=== PATIENT | female | born 1950 | race Caucasian/White ===

== ENCOUNTER 2019-02-15 23:40 | Inpatient (IN) ==
[2019-02-16] MEDS ORDERED: ONDANSETRON 4 MG/2 ML VIAL ONE ×2 (01:11→09:26)
[2019-02-16] MEDS ORDERED: HYDROmorphone 2 MG/1 ML VIAL ONE (01:11)
[2019-02-16] MEDS ORDERED: HYDROmorphone 2 MG/1 ML VIAL IV STA (01:28)
[2019-02-16] MEDS ORDERED: ONDANSETRON 4 MG/2 ML VIAL IV STA (01:28)
[2019-02-16 02:19] LABS: Basophils # 0.1 10*3/uL (0.0-0.2); Basophils % 0.4 % (0.0-0.8); Eosinophils # 0.2 10*3/uL (0.0-0.87); Hematocrit 32.7 VOL% (35.7-47.0); Hemoglobin 10.1 GM/DL (12.0-16.0); Immature Granulocytes Absolute 0.17 #; Lymphocytes % 11.8 % (21.3-54.2); Mean Corpuscular HGB Conc 30.9 GM/DL (32-36); Mean Corpuscular Volume 99.1 FL (87-102); Mean Platelet Volume 10.6 FL (9.6-12.0); Monocytes % 4.5 % (1.7-12.7); Neutrophils % 81.3 % (38.7-73.9); Platelet Count 145 T/CUMM (130-400); Red Cell Distribution Width 16.1 % (9.3-17.3); White Blood Count 17.1 T/CUMM (4-12)
[2019-02-16 02:31] LABS: INR 0.9; Partial Thromboplastin Time 23.1 SECS (20.8-36.0)
[2019-02-16 02:38] LABS: Alanine Aminotransferase 13 U/L (13-56); Albumin 3.5 G/DL (3.4-5.0); Alkaline Phosphatase 97 U/L (45-117); Aspartate Amino Transferase 14 U/L (0-37); Bilirubin,Total < 0.39 MG/DL (0.2-1.0); Blood Urea Nitrogen 59 MG/DL (7-18); Calcium 8.8 MG/DL (8.5-10.1); Glucose 192 MG/DL (74-106); Osmolality,Calculated 304.1 MOS/KG (273-304); Total Protein 7.2 G/DL (6.4-8.3)
[2019-02-16] MEDS ORDERED: ONDANSETRON 4 MG/2 ML VIAL IV PRN (03:02)
[2019-02-16] MEDS ORDERED: GLUCAGON 1 MG VIAL IM PRN (03:09)
[2019-02-16] MEDS ORDERED: DEXTROSE 50% 25 GM/50 ML VIAL IV PRN (03:09)
[2019-02-16] MEDS: SODIUM CHLORIDE 0.9% 1,000 ML IV SCH ×2 (04:55→15:50)
[2019-02-16 06:19] LABS: Basophils # 0.1 10*3/uL (0.0-0.2); Basophils % 0.4 % (0.0-0.8); Eosinophils # 0.2 10*3/uL (0.0-0.87); Eosinophils % 0.9 % (0.00-10.9); Hematocrit 33.5 VOL% (35.7-47.0); Hemoglobin 10.2 GM/DL (12.0-16.0); Immature Granulocytes % 1.1 %; Immature Granulocytes Absolute 0.18 #; Lymphocytes # 2.5 10*3/uL (1.4-4.0); Lymphocytes % 15.2 % (21.3-54.2); Mean Corpuscular HGB Conc 30.4 GM/DL (32-36); Mean Platelet Volume 10.7 FL (9.6-12.0); Monocytes % 4.9 % (1.7-12.7); Neutrophils % 77.5 % (38.7-73.9); Platelet Count 159 T/CUMM (130-400); Red Blood Count 3.35 MC/CUMM (3.8-5.5); Red Cell Distribution Width 16.5 % (9.3-17.3); White Blood Count 16.2 T/CUMM (4-12)
[2019-02-16 06:37] LABS: Calcium 8.9 MG/DL (8.5-10.1); Osmolality,Calculated 301.1 MOS/KG (273-304)
[2019-02-16] MEDS ORDERED: DEXAMETHASONE 4 MG/1 ML VIAL ONE (06:51)
[2019-02-16] MEDS ORDERED: LIDOCAINE 1% 5 ML VIAL ONE (06:51)
[2019-02-16] MEDS ORDERED: ROPIVACAINE 0.5% 30 ML VIAL ONE (06:51)
[2019-02-16] MEDS ORDERED: CLINDAMYCIN INJ 900 MG in PREMIX 1 EACH IV ONE (07:06)
[2019-02-16] MEDS ORDERED: ENOXAPARIN 30 MG/0.3 ML SYRINGE SUBCUT SCH (08:00)
[2019-02-16] MEDS ORDERED: NEOMYCIN/POLYMYXIN/BACITRACIN OINT 28.4 GM TUBE TOP ONE (08:27)
[2019-02-16] MEDS: INSULIN REGULAR 100 UNIT/ML SUBCUT SCH ×5 (09:06→23:25)
[2019-02-16] MEDS ORDERED: MAGNESIUM HYDROXIDE SUSP 30 ML UDCUP PO PRN (09:15)
[2019-02-16] MEDS ORDERED: MIDAZOLAM 2 MG/2 ML VIAL ONE (09:26)
[2019-02-16] MEDS ORDERED: fentaNYL 100 MCG/2 ML VIAL ONE (09:26)
[2019-02-16] MEDS ORDERED: ACETAMINOPHEN 1,000 MG/100 ML VIAL IV ONE (09:26)
[2019-02-16] MEDS ORDERED: PROPOFOL 200 MG/20 ML VIAL IV ONE (09:26)
[2019-02-16] MEDS ORDERED: PHENYLEPHRINE 1 MG/10 ML SYRINGE IV ONE (09:26)
[2019-02-16 11:38] LABS: Risk Ratio 4.19; VLDL CHOLESTEROL 68.2 MG/DL
[2019-02-16] MEDS: HYDROmorphone 2 MG/1 ML VIAL IV PRN ×2 (14:15→23:24)
[2019-02-16] MEDS: CLINDAMYCIN INJ 900 MG in PREMIX 1 EACH IV SCH (15:50)
[2019-02-16] MEDS: FAMOTIDINE 20 MG TABLET PO SCH ×2 (16:19→19:00)
[2019-02-16] MEDS: CLOPIDOGREL 75 MG TABLET PO SCH ×2 (16:20→19:00)
[2019-02-16] MEDS: AMINO ACIDS/DEXT/LYTES 4.25-5% 2,000 ML IV SCH (16:37)
[2019-02-16] MEDS: hydrALAZINE 20 MG/1 ML VIAL IV PRN (16:57)
[2019-02-16] MEDS: ROSUVASTATIN 20 MG TABLET PO SCH (20:33)
[2019-02-16] MEDS: OMEGA 3 ACID ETHYL ESTERS 1 GM CAPSULE PO SCH (20:33)
[2019-02-16] MEDS ORDERED: INSULIN GLARGINE 100 UNIT/ML SUBCUT SCH (21:00)
[2019-02-17] MEDS: HYDROmorphone 2 MG/1 ML VIAL IV PRN ×3 (01:15→20:36)
[2019-02-17] MEDS: SODIUM CHLORIDE 0.9% 1,000 ML IV SCH ×2 (02:19→08:47)
[2019-02-17] MEDS: CLINDAMYCIN INJ 900 MG in PREMIX 1 EACH IV SCH (02:49)
[2019-02-17 05:44] LABS: Basophils % 0.2 % (0.0-0.8); Hematocrit 29.9 VOL% (35.7-47.0); Hemoglobin 9.3 GM/DL (12.0-16.0); Immature Granulocytes % 0.9 %; Immature Granulocytes Absolute 0.12 #; Lymphocytes # 1.3 10*3/uL (1.4-4.0); Lymphocytes % 10.1 % (21.3-54.2); Mean Corpuscular HGB Conc 31.1 GM/DL (32-36); Mean Platelet Volume 10.5 FL (9.6-12.0); Monocytes % 7.4 % (1.7-12.7); Neutrophils % 81.4 % (38.7-73.9); Platelet Count 134 T/CUMM (130-400); Red Blood Count 3.02 MC/CUMM (3.8-5.5); Red Cell Distribution Width 16.5 % (9.3-17.3); White Blood Count 12.7 T/CUMM (4-12)
[2019-02-17 06:06] LABS: Calcium 8.6 MG/DL (8.5-10.1); Osmolality,Calculated 313.1 MOS/KG (273-304)
[2019-02-17] MEDS: CLOPIDOGREL 75 MG TABLET PO SCH (08:45)
[2019-02-17] MEDS: ENOXAPARIN 30 MG/0.3 ML SYRINGE SUBCUT SCH (08:46)
[2019-02-17] MEDS: INSULIN REGULAR 100 UNIT/ML SUBCUT SCH ×6 (08:46→23:22)
[2019-02-17] MEDS: OMEGA 3 ACID ETHYL ESTERS 1 GM CAPSULE PO SCH ×2 (08:47→21:10)
[2019-02-17] MEDS: FAMOTIDINE 20 MG TABLET PO SCH (08:47)
[2019-02-17] MEDS ORDERED: FUROSEMIDE 40 MG/4 ML VIAL IV ONE ×2 (11:19→15:36)
[2019-02-17] MEDS ORDERED: FUROSEMIDE 20 MG/2 ML VIAL ONE (11:25)
[2019-02-17 11:48] LABS: ABG HCO3 21.8 MMOL/L (20-26); ABG Oxygen Saturation 91.9 % (95-100); ABG PCO2 41.1 MM HG (35-48); ABG PH 7.345 (7.35-7.45); ABG TCO2 20.5 MMOL/L (23-27); Allen Test Positive; Pt O2 Delivery Device Simple Mask
[2019-02-17 12:28] LABS: Apearance,Urine Slightly Hazy (Clear); Bacteria,Urine Occasional /HPF (Few); Bilirubin,Urine Negative (Negative); Blood, Urine Small mg/dL (Negative); Glucose,Urine (UA) >=500 mg/dL (Negative); Ketones,Urine Negative (Negative); Mucus,Urine Occasional /LPF (Occasional); Nitrite,Urine Negative (Negative); Protein,Urine 100 MG/DL; RBC,Urine 1 /HPF (0-4); Squamous Epithelial Cell,Urine Occasional /HPF (0-10); Urine Color Yellow (Yellow); Urine Specific Gravity 1.007 (1.001-1.035); Urine Urobilinogen < 2.0 EU/DL (0.2-1.0)
[2019-02-17] MEDS: LEVOFLOXACIN INJ 500 MG in PREMIX 1 EACH IV SCH (13:52)
[2019-02-17] MEDS: ALBUTEROL/IPRATROPIUM 3 ML NEB RESP TX SCH ×3 (14:22→23:37)
[2019-02-17] MEDS ORDERED: methylPREDNISolone SOD SUC 40 MG/1 ML VIAL IV SCH (15:00)
[2019-02-17] MEDS: CLINDAMYCIN INJ 600 MG in PREMIX 1 EACH IV SCH ×2 (16:00→23:21)
[2019-02-17] MEDS: AMINO ACIDS/DEXT/LYTES 4.25-5% 2,000 ML IV SCH (20:05)
[2019-02-17] MEDS ORDERED: INSULIN REGULAR 100 UNIT/ML SUBCUT SCH (21:00)
[2019-02-17] MEDS: methylPREDNISolone SOD SUC 40 MG/1 ML VIAL IV SCH (21:05)
[2019-02-17] MEDS: ROSUVASTATIN 20 MG TABLET PO SCH (21:10)
[2019-02-17] MEDS: INSULIN GLARGINE 100 UNIT/ML SUBCUT SCH (21:20)
[2019-02-17] MEDS: hydrALAZINE 20 MG/1 ML VIAL IV PRN (21:25)
[2019-02-18] MEDS: HYDROmorphone 2 MG/1 ML VIAL IV PRN ×3 (00:11→19:22)
[2019-02-18] MEDS: INSULIN REGULAR 100 UNIT/ML SUBCUT SCH ×8 (02:27→19:23)
[2019-02-18] MEDS: methylPREDNISolone SOD SUC 40 MG/1 ML VIAL IV SCH ×2 (03:17→08:38)
[2019-02-18] MEDS: hydrALAZINE 20 MG/1 ML VIAL IV PRN ×2 (03:40→14:50)
[2019-02-18 04:21] LABS: ABG Base Excess -1.1 MMOL/L (-2.5-2.5); ABG HCO3 23.1 MMOL/L (20-26); ABG Oxygen Saturation 96.3 % (95-100); ABG PCO2 36.9 MM HG (35-48); ABG PH 7.415 (7.35-7.45); ABG PO2 81.3 MM HG (80-95); ABG TCO2 24.3 MMOL/L (23-27); Allen Test Positive; Pt O2 Delivery Device BIPAP
[2019-02-18] MEDS: ALBUTEROL/IPRATROPIUM 3 ML NEB RESP TX SCH ×7 (04:28→22:48)
[2019-02-18 05:14] LABS: Basophils % 0.2 % (0.0-0.8); Hematocrit 33.2 VOL% (35.7-47.0); Hemoglobin 10.3 GM/DL (12.0-16.0); Immature Granulocytes Absolute 0.18 #; Lymphocytes # 0.6 10*3/uL (1.4-4.0); Lymphocytes % 2.9 % (21.3-54.2); Mean Corpuscular Volume 97.4 FL (87-102); Monocytes % 2.8 % (1.7-12.7); Neutrophils % 93.1 % (38.7-73.9); Platelet Count 149 T/CUMM (130-400); Red Blood Count 3.41 MC/CUMM (3.8-5.5); Red Cell Distribution Width 16.1 % (9.3-17.3); White Blood Count 18.7 T/CUMM (4-12)
[2019-02-18 05:33] LABS: Calcium 9.3 MG/DL (8.5-10.1); Osmolality,Calculated 317.4 MOS/KG (273-304)
[2019-02-18 06:22] LABS: Anisocytosis Slight; Band Neutrophils 2 % (0-10); Lymphocytes 3 % (20-55); Macrocytosis Slight; Platelet Estimate Decreased; Segmented Neutrophils 92 % (50-85); Total Cells Counted 100
[2019-02-18] MEDS ORDERED: hydrALAZINE 20 MG/1 ML VIAL IV ONE (06:23)
[2019-02-18] MEDS: CLINDAMYCIN INJ 600 MG in PREMIX 1 EACH IV SCH ×2 (06:36→14:50)
[2019-02-18] MEDS: FAMOTIDINE 20 MG TABLET PO SCH (08:38)
[2019-02-18] MEDS: ENOXAPARIN 30 MG/0.3 ML SYRINGE SUBCUT SCH (08:39)
[2019-02-18] MEDS: CLOPIDOGREL 75 MG TABLET PO SCH (08:40)
[2019-02-18] MEDS: FUROSEMIDE 40 MG/4 ML VIAL IV SCH (08:48)
[2019-02-18] MEDS: OMEGA 3 ACID ETHYL ESTERS 1 GM CAPSULE PO SCH ×2 (09:52→20:34)
[2019-02-18] MEDS ORDERED: INSULIN REGULAR 100 UNIT/ML ONE (10:12)
[2019-02-18] MEDS ORDERED: INSULIN REGULAR 100 UNIT/ML IV ONE (11:25)
[2019-02-18] MEDS ORDERED: SODIUM PHOSPHATE IV PRN (11:25)
[2019-02-18] MEDS ORDERED: DEXTROSE 50% 25 GM/50 ML VIAL IV PRN ×2 (11:25)
[2019-02-18] MEDS ORDERED: MAGNESIUM SULF RIDER 2 GM in PREMIX 1 EACH IV PRN (11:25)
[2019-02-18] MEDS ORDERED: MAGNESIUM SULF RIDER 4 GM in PREMIX 1 EACH IV PRN (11:25)
[2019-02-18] MEDS ORDERED: SODIUM CHLORIDE 0.9% IV PRN (11:25)
[2019-02-18] MEDS ORDERED: SODIUM BICARB INJ 100 MEQ in STERILE WATER INJ 400 ML IV PRN (11:25)
[2019-02-18] MEDS: INSULIN REGULAR DRIP 100 ML IV SCH ×2 (12:02→22:46)
[2019-02-18 12:33] LABS: Calcium 9.6 MG/DL (8.5-10.1); Osmolality,Calculated 319.8 MOS/KG (273-304)
[2019-02-18] MEDS: ENOXAPARIN 100 MG/ML SYRINGE SUBCUT SCH (14:02)
[2019-02-18] MEDS: CARVEDILOL 6.25 MG TABLET PO SCH ×2 (14:50→20:07)
[2019-02-18] MEDS: AMINO ACIDS/DEXT/LYTES 4.25-5% 2,000 ML IV SCH (16:12)
[2019-02-18 19:46] LABS: Calcium 9.7 MG/DL (8.5-10.1); Osmolality,Calculated 318.7 MOS/KG (273-304)
[2019-02-18] MEDS: ROSUVASTATIN 20 MG TABLET PO SCH (20:07)
[2019-02-18] MEDS: INSULIN GLARGINE 100 UNIT/ML SUBCUT SCH ×2 (20:07→20:34)
[2019-02-19] MEDS: CLINDAMYCIN INJ 600 MG in PREMIX 1 EACH IV SCH ×4 (00:06→22:37)
[2019-02-19] MEDS: INSULIN REGULAR 100 UNIT/ML SUBCUT SCH ×6 (00:06→20:20)
[2019-02-19 00:22] LABS: Calcium 9.5 MG/DL (8.5-10.1); Osmolality,Calculated 321.3 MOS/KG (273-304)
[2019-02-19] MEDS: HYDROmorphone 2 MG/1 ML VIAL IV PRN ×3 (01:23→22:36)
[2019-02-19] MEDS: ALBUTEROL/IPRATROPIUM 3 ML NEB RESP TX SCH ×5 (04:14→19:32)
[2019-02-19 04:45] LABS: Basophils % 0.1 % (0.0-0.8); Hematocrit 32.7 VOL% (35.7-47.0); Hemoglobin 9.8 GM/DL (12.0-16.0); Immature Granulocytes % 1.1 %; Immature Granulocytes Absolute 0.18 #; Lymphocytes % 5.9 % (21.3-54.2); Mean Corpuscular Volume 100.6 FL (87-102); Mean Platelet Volume 10.8 FL (9.6-12.0); Monocytes % 7.6 % (1.7-12.7); Neutrophils % 85.3 % (38.7-73.9); Platelet Count 147 T/CUMM (130-400); Red Blood Count 3.25 MC/CUMM (3.8-5.5)
[2019-02-19 05:00] LABS: Calcium 9.6 MG/DL (8.5-10.1); Osmolality,Calculated 317.6 MOS/KG (273-304)
[2019-02-19] MEDS: hydrALAZINE 20 MG/1 ML VIAL IV PRN ×3 (05:04→20:54)
[2019-02-19] MEDS: CLOPIDOGREL 75 MG TABLET PO SCH (08:10)
[2019-02-19] MEDS: OMEGA 3 ACID ETHYL ESTERS 1 GM CAPSULE PO SCH ×2 (08:10→20:53)
[2019-02-19] MEDS: FAMOTIDINE 20 MG TABLET PO SCH (08:10)
[2019-02-19] MEDS: CARVEDILOL 25 MG TABLET PO SCH ×2 (08:10→20:53)
[2019-02-19] MEDS: FUROSEMIDE 40 MG/4 ML VIAL IV SCH (08:11)
[2019-02-19 08:29] LABS: Calcium 9.7 MG/DL (8.5-10.1); Osmolality,Calculated 321.4 MOS/KG (273-304)
[2019-02-19] MEDS: ENOXAPARIN 100 MG/ML SYRINGE SUBCUT SCH (11:28)
[2019-02-19] MEDS: LEVOFLOXACIN INJ 500 MG in PREMIX 1 EACH IV SCH (11:29)
[2019-02-19] MEDS: INSULIN REGULAR DRIP 100 ML IV SCH ×2 (11:40→19:50)
[2019-02-19] MEDS: ROSUVASTATIN 20 MG TABLET PO SCH (20:53)
[2019-02-19] MEDS: INSULIN GLARGINE 100 UNIT/ML SUBCUT SCH (20:54)
[2019-02-20] MEDS: INSULIN REGULAR 100 UNIT/ML SUBCUT SCH ×6 (00:09→20:45)
[2019-02-20] MEDS: ALBUTEROL/IPRATROPIUM 3 ML NEB RESP TX SCH ×7 (00:21→23:11)
[2019-02-20] MEDS: CLINDAMYCIN INJ 600 MG in PREMIX 1 EACH IV SCH ×2 (07:08→14:46)
[2019-02-20] MEDS: FAMOTIDINE 20 MG TABLET PO SCH (08:20)
[2019-02-20] MEDS: OMEGA 3 ACID ETHYL ESTERS 1 GM CAPSULE PO SCH ×2 (08:20→21:32)
[2019-02-20] MEDS: FUROSEMIDE 40 MG/4 ML VIAL IV SCH (08:21)
[2019-02-20] MEDS: CARVEDILOL 25 MG TABLET PO SCH ×2 (08:21→21:33)
[2019-02-20] MEDS: CLOPIDOGREL 75 MG TABLET PO SCH (08:21)
[2019-02-20 08:22] LABS: Basophils % 0.2 % (0.0-0.8); Hemoglobin 9.9 GM/DL (12.0-16.0); Immature Granulocytes % 0.9 %; Immature Granulocytes Absolute 0.12 #; Lymphocytes # 0.8 10*3/uL (1.4-4.0); Mean Corpuscular Volume 100.3 FL (87-102); Mean Platelet Volume 11.5 FL (9.6-12.0); Monocytes % 7.7 % (1.7-12.7); NRBC # 0.02 10*3/uL; Neutrophils % 85.2 % (38.7-73.9); Platelet Count 146 T/CUMM (130-400); Red Blood Count 3.29 MC/CUMM (3.8-5.5); Red Cell Distribution Width 15.9 % (9.3-17.3); White Blood Count 12.7 T/CUMM (4-12)
[2019-02-20] MEDS: INSULIN REGULAR DRIP 100 ML IV SCH (08:27)
[2019-02-20 09:15] LABS: ABG Base Excess 1.6 MMOL/L (-2.5-2.5); ABG HCO3 25.7 MMOL/L (20-26); ABG Oxygen Saturation 91.6 % (95-100); ABG PO2 55.7 MM HG (80-95); ABG TCO2 21.5 MMOL/L (23-27); Allen Test Positive; Pt O2 Delivery Device Other
[2019-02-20] MEDS: INSULIN REGULAR DRIP 100 ML IV PRN ×2 (09:19→19:16)
[2019-02-20] MEDS: ENOXAPARIN 100 MG/ML SYRINGE SUBCUT SCH (11:19)
[2019-02-20 13:43] LABS: Calcium 9.2 MG/DL (8.5-10.1); Osmolality,Calculated 338.7 MOS/KG (273-304)
[2019-02-20] MEDS: POTASSIUM CHLORIDE RIDER 10 MEQ in PREMIX 1 EACH IV PRN ×4 (14:46→18:24)
[2019-02-20] MEDS ORDERED: FUROSEMIDE 40 MG/4 ML VIAL IV SCH (15:00)
[2019-02-20] MEDS: ENOXAPARIN 30 MG/0.3 ML SYRINGE SUBCUT SCH (15:25)
[2019-02-20] MEDS: MEROPENEM 500 MG in SODIUM CHLORIDE 0.9% 100 ML IV SCH (16:48)
[2019-02-20] MEDS: NIFEdipine 10 MG CAPSULE PO SCH (21:32)
[2019-02-20] MEDS: ROSUVASTATIN 20 MG TABLET PO SCH (21:32)
[2019-02-21] MEDS: INSULIN REGULAR 100 UNIT/ML SUBCUT SCH ×3 (00:08→08:00)
[2019-02-21 00:40] LABS: Basophils % 0.1 % (0.0-0.8); Hematocrit 32.4 VOL% (35.7-47.0); Hemoglobin 9.7 GM/DL (12.0-16.0); Immature Granulocytes Absolute 0.12 #; Lymphocytes # 0.9 10*3/uL (1.4-4.0); Lymphocytes % 7.4 % (21.3-54.2); Mean Corpuscular HGB Conc 29.9 GM/DL (32-36); Mean Corpuscular Volume 99.1 FL (87-102); Mean Platelet Volume 11.8 FL (9.6-12.0); Monocytes % 7.1 % (1.7-12.7); NRBC # 0.03 10*3/uL; Neutrophils % 84.4 % (38.7-73.9); Platelet Count 119 T/CUMM (130-400); Red Blood Count 3.27 MC/CUMM (3.8-5.5); Red Cell Distribution Width 15.7 % (9.3-17.3); White Blood Count 11.8 T/CUMM (4-12)
[2019-02-21 00:50] LABS: Albumin 2.6 G/DL (3.4-5.0); Bilirubin,Total 0.4 MG/DL (0.2-1.0); Calcium 9.2 MG/DL (8.5-10.1); Osmolality,Calculated 337.6 MOS/KG (273-304); Total Protein 6.7 G/DL (6.4-8.3)
[2019-02-21] MEDS: NITROGLYCERIN 2% OINT 1 INCH/GM PACK TOP SCH ×4 (01:32→20:23)
[2019-02-21 03:28] LABS: Pt O2 Delivery Device Other
[2019-02-21 03:29] LABS: ABG Base Excess 1.8 MMOL/L (-2.5-2.5); ABG Oxygen Saturation 95.5 % (95-100); ABG PCO2 33.2 MM HG (35-48); ABG PH 7.484 (7.35-7.45); ABG PO2 70.1 MM HG (80-95); ABG TCO2 22.7 MMOL/L (23-27)
[2019-02-21] MEDS: ALBUTEROL/IPRATROPIUM 3 ML NEB RESP TX SCH ×5 (03:35→19:23)
[2019-02-21] MEDS: INSULIN REGULAR DRIP 100 ML IV PRN ×2 (04:25→16:10)
[2019-02-21] MEDS: NIFEdipine 10 MG CAPSULE PO SCH ×3 (09:30→20:23)
[2019-02-21] MEDS: FUROSEMIDE 20 MG TABLET PO SCH (09:30)
[2019-02-21] MEDS: FAMOTIDINE 20 MG TABLET PO SCH (09:30)
[2019-02-21] MEDS: MEROPENEM 500 MG in SODIUM CHLORIDE 0.9% 100 ML IV SCH (09:30)
[2019-02-21] MEDS: CARVEDILOL 25 MG TABLET PO SCH ×2 (09:30→20:23)
[2019-02-21] MEDS: CLOPIDOGREL 75 MG TABLET PO SCH (09:30)
[2019-02-21] MEDS: OMEGA 3 ACID ETHYL ESTERS 1 GM CAPSULE PO SCH ×2 (09:30→20:23)
[2019-02-21] MEDS: ENOXAPARIN 30 MG/0.3 ML SYRINGE SUBCUT SCH (15:10)
[2019-02-21] MEDS: ROSUVASTATIN 20 MG TABLET PO SCH (20:23)
[2019-02-22] MEDS: ALBUTEROL/IPRATROPIUM 3 ML NEB RESP TX SCH ×7 (00:06→23:42)
[2019-02-22] MEDS: INSULIN REGULAR DRIP 100 ML IV PRN (02:11)
[2019-02-22] MEDS: NITROGLYCERIN 2% OINT 1 INCH/GM PACK TOP SCH (03:18)
[2019-02-22 03:49] LABS: ABG Base Excess 0.4 MMOL/L (-2.5-2.5); ABG HCO3 24.8 MMOL/L (20-26); ABG Oxygen Saturation 98.1 % (95-100); ABG PCO2 39.7 MM HG (35-48); ABG PH 7.414 (7.35-7.45); ABG PO2 114.4 MM HG (80-95)
[2019-02-22 03:50] LABS: Allen Test Positive; Pt O2 Delivery Device Other
[2019-02-22 04:29] LABS: Basophils % 0.1 % (0.0-0.8); Eosinophils # 0.1 10*3/uL (0.0-0.87); Eosinophils % 0.7 % (0.00-10.9); Hematocrit 30.2 VOL% (35.7-47.0); Hemoglobin 9.1 GM/DL (12.0-16.0); Immature Granulocytes % 0.7 %; Immature Granulocytes Absolute 0.07 #; Lymphocytes # 1.3 10*3/uL (1.4-4.0); Lymphocytes % 12.5 % (21.3-54.2); Mean Corpuscular HGB Conc 30.1 GM/DL (32-36); Mean Corpuscular Volume 100.3 FL (87-102); Mean Platelet Volume 12.4 FL (9.6-12.0); Monocytes % 7.6 % (1.7-12.7); Neutrophils % 78.4 % (38.7-73.9); Platelet Count 101 T/CUMM (130-400); Red Blood Count 3.01 MC/CUMM (3.8-5.5); Red Cell Distribution Width 15.5 % (9.3-17.3); White Blood Count 10.2 T/CUMM (4-12)
[2019-02-22] MEDS ORDERED: VANCOMYCIN 500 MG VIAL ONE (07:08)
[2019-02-22 08:50] LABS: Calcium 8.9 MG/DL (8.5-10.1); Osmolality,Calculated 346.6 MOS/KG (273-304)
[2019-02-22] MEDS: MEROPENEM 500 MG in SODIUM CHLORIDE 0.9% 100 ML IV SCH (09:44)
[2019-02-22] MEDS: CLOPIDOGREL 75 MG TABLET PO SCH (09:44)
[2019-02-22] MEDS: FAMOTIDINE 20 MG TABLET PO SCH (09:44)
[2019-02-22] MEDS: CARVEDILOL 25 MG TABLET PO SCH ×2 (09:45→21:57)
[2019-02-22] MEDS: NIFEdipine 10 MG CAPSULE PO SCH ×3 (09:45→21:57)
[2019-02-22] MEDS: FUROSEMIDE 20 MG TABLET PO SCH (09:45)
[2019-02-22] MEDS: OMEGA 3 ACID ETHYL ESTERS 1 GM CAPSULE PO SCH ×2 (09:45→21:58)
[2019-02-22] MEDS: methylPREDNISolone SOD SUC 40 MG/1 ML VIAL IV SCH ×2 (11:00→21:55)
[2019-02-22] MEDS ORDERED: INSULIN GLARGINE 100 UNIT/ML SUBCUT SCH (13:30)
[2019-02-22] MEDS ORDERED: INSULIN REGULAR 100 UNIT/ML ONE (13:39)
[2019-02-22] MEDS: INSULIN REGULAR 100 UNIT/ML SUBCUT SCH ×3 (13:42→22:50)
[2019-02-22] MEDS: DEXTROSE 5% 1,000 ML IV SCH (14:01)
[2019-02-22] MEDS: ENOXAPARIN 30 MG/0.3 ML SYRINGE SUBCUT SCH (15:50)
[2019-02-22] MEDS ORDERED: INSULIN GLARGINE 100 UNIT/ML SUBCUT ONE (18:44)
[2019-02-22] MEDS ORDERED: INSULIN REGULAR 100 UNIT/ML IV STA (20:36)
[2019-02-22] MEDS: ROSUVASTATIN 20 MG TABLET PO SCH (21:57)
[2019-02-23] MEDS: DEXTROSE 5% 1,000 ML IV SCH (02:26)
[2019-02-23 04:09] LABS: ABG Base Excess -0.6 MMOL/L (-2.5-2.5); ABG HCO3 23.9 MMOL/L (20-26); ABG PCO2 40.1 MM HG (35-48); ABG TCO2 21.1 MMOL/L (23-27); Allen Test Positive
[2019-02-23] MEDS: ALBUTEROL/IPRATROPIUM 3 ML NEB RESP TX SCH ×5 (04:12→20:06)
[2019-02-23] MEDS: INSULIN REGULAR 100 UNIT/ML SUBCUT SCH ×9 (04:14→23:57)
[2019-02-23 04:32] LABS: Basophils % 0.2 % (0.0-0.8); Hematocrit 32.6 VOL% (35.7-47.0); Hemoglobin 9.7 GM/DL (12.0-16.0); Immature Granulocytes Absolute 0.12 #; Lymphocytes # 0.5 10*3/uL (1.4-4.0); Mean Corpuscular HGB Conc 29.8 GM/DL (32-36); Mean Platelet Volume 12.9 FL (9.6-12.0); Monocytes % 2.7 % (1.7-12.7); Neutrophils % 92.1 % (38.7-73.9); Platelet Count 119 T/CUMM (130-400); Red Blood Count 3.26 MC/CUMM (3.8-5.5); Red Cell Distribution Width 14.5 % (9.3-17.3); White Blood Count 11.6 T/CUMM (4-12)
[2019-02-23 04:49] LABS: Osmolality,Calculated 352.4 MOS/KG (273-304)
[2019-02-23 05:15] LABS: Anisocytosis 1+; Band Neutrophils 1 % (0-10); Lymphocytes 6 % (20-55); Macrocytosis Slight; Segmented Neutrophils 92 % (50-85); Total Cells Counted 100
[2019-02-23 05:16] LABS: Platelet Estimate Adequate
[2019-02-23] MEDS: CLOPIDOGREL 75 MG TABLET PO SCH (08:18)
[2019-02-23] MEDS: OMEGA 3 ACID ETHYL ESTERS 1 GM CAPSULE PO SCH ×2 (08:18→20:31)
[2019-02-23] MEDS: FUROSEMIDE 20 MG TABLET PO SCH (08:19)
[2019-02-23] MEDS: INSULIN GLARGINE 100 UNIT/ML SUBCUT SCH ×2 (08:19→20:31)
[2019-02-23] MEDS: NIFEdipine 10 MG CAPSULE PO SCH ×3 (08:19→20:31)
[2019-02-23] MEDS: FAMOTIDINE 20 MG TABLET PO SCH (08:19)
[2019-02-23] MEDS: MEROPENEM 500 MG in SODIUM CHLORIDE 0.9% 100 ML IV SCH (08:19)
[2019-02-23] MEDS: CARVEDILOL 25 MG TABLET PO SCH ×2 (08:19→20:31)
[2019-02-23] MEDS: methylPREDNISolone SOD SUC 40 MG/1 ML VIAL IV SCH (09:37)
[2019-02-23] MEDS: ENOXAPARIN 30 MG/0.3 ML SYRINGE SUBCUT SCH (14:40)
[2019-02-23] MEDS: ROSUVASTATIN 20 MG TABLET PO SCH (20:31)
[2019-02-24] MEDS: ALBUTEROL/IPRATROPIUM 3 ML NEB RESP TX SCH ×7 (00:23→23:50)
[2019-02-24 04:09] LABS: Calcium 8.7 MG/DL (8.5-10.1); Osmolality,Calculated 344.1 MOS/KG (273-304)
[2019-02-24 04:18] LABS: Basophils % 0.1 % (0.0-0.8); Eosinophils % 0.1 % (0.00-10.9); Hematocrit 31.5 VOL% (35.7-47.0); Hemoglobin 9.6 GM/DL (12.0-16.0); Immature Granulocytes % 0.8 %; Immature Granulocytes Absolute 0.09 #; Lymphocytes # 1.3 10*3/uL (1.4-4.0); Lymphocytes % 11.7 % (21.3-54.2); Mean Corpuscular HGB Conc 30.5 GM/DL (32-36); Mean Corpuscular Volume 98.4 FL (87-102); Mean Platelet Volume 13.1 FL (9.6-12.0); Monocytes % 6.5 % (1.7-12.7); Neutrophils % 80.8 % (38.7-73.9); Platelet Count 101 T/CUMM (130-400); Red Cell Distribution Width 14.5 % (9.3-17.3); White Blood Count 11.5 T/CUMM (4-12)
[2019-02-24] MEDS: INSULIN REGULAR 100 UNIT/ML SUBCUT SCH ×9 (04:26→22:47)
[2019-02-24 04:50] LABS: Anisocytosis 1+; Platelet Estimate Decreased
[2019-02-24] MEDS: CARVEDILOL 25 MG TABLET PO SCH ×2 (08:06→21:08)
[2019-02-24] MEDS: FUROSEMIDE 20 MG TABLET PO SCH (08:06)
[2019-02-24] MEDS: FAMOTIDINE 20 MG TABLET PO SCH (08:06)
[2019-02-24] MEDS: CLOPIDOGREL 75 MG TABLET PO SCH (08:07)
[2019-02-24] MEDS: NIFEdipine 10 MG CAPSULE PO SCH (08:07)
[2019-02-24] MEDS: OMEGA 3 ACID ETHYL ESTERS 1 GM CAPSULE PO SCH ×2 (08:07→21:08)
[2019-02-24] MEDS: predniSONE 20 MG TABLET PO SCH (08:07)
[2019-02-24] MEDS: MEROPENEM 500 MG in SODIUM CHLORIDE 0.9% 100 ML IV SCH (08:08)
[2019-02-24] MEDS: INSULIN GLARGINE 100 UNIT/ML SUBCUT SCH ×2 (08:08→21:08)
[2019-02-24] MEDS: hydrALAZINE 20 MG/1 ML VIAL IV PRN (10:38)
[2019-02-24] MEDS: amLODIPine 10 MG TABLET PO SCH (13:19)
[2019-02-24] MEDS: SERTRALINE 100 MG TABLET PO SCH ×2 (14:14→21:08)
[2019-02-24] MEDS: hydrALAZINE 25 MG TABLET PO SCH ×2 (14:14→21:08)
[2019-02-24] MEDS: ENOXAPARIN 30 MG/0.3 ML SYRINGE SUBCUT SCH (16:11)
[2019-02-24] MEDS: ROSUVASTATIN 20 MG TABLET PO SCH (21:08)
[2019-02-25] MEDS ORDERED: ACETAMINOPHEN 500 MG TABLET PO PRN (00:21)
[2019-02-25] MEDS: INSULIN REGULAR 100 UNIT/ML SUBCUT SCH ×9 (01:03→21:41)
[2019-02-25] MEDS: ALBUTEROL/IPRATROPIUM 3 ML NEB RESP TX SCH ×6 (02:27→23:34)
[2019-02-25 05:04] LABS: Basophils % 0.1 % (0.0-0.8); Eosinophils % 0.1 % (0.00-10.9); Hematocrit 30.4 VOL% (35.7-47.0); Hemoglobin 9.2 GM/DL (12.0-16.0); Immature Granulocytes % 0.9 %; Immature Granulocytes Absolute 0.13 #; Lymphocytes # 1.8 10*3/uL (1.4-4.0); Lymphocytes % 12.2 % (21.3-54.2); Mean Corpuscular HGB Conc 30.3 GM/DL (32-36); Mean Corpuscular Volume 98.7 FL (87-102); Mean Platelet Volume 12.6 FL (9.6-12.0); Monocytes % 7.9 % (1.7-12.7); Neutrophils % 78.8 % (38.7-73.9); Platelet Count 153 T/CUMM (130-400); Red Blood Count 3.08 MC/CUMM (3.8-5.5); White Blood Count 14.5 T/CUMM (4-12)
[2019-02-25 05:39] LABS: Calcium 8.8 MG/DL (8.5-10.1); Osmolality,Calculated 340.3 MOS/KG (273-304)
[2019-02-25] MEDS: CLOPIDOGREL 75 MG TABLET PO SCH (09:54)
[2019-02-25] MEDS: predniSONE 20 MG TABLET PO SCH (09:54)
[2019-02-25] MEDS: OMEGA 3 ACID ETHYL ESTERS 1 GM CAPSULE PO SCH ×2 (09:54→21:42)
[2019-02-25] MEDS: SERTRALINE 100 MG TABLET PO SCH ×2 (09:55→20:34)
[2019-02-25] MEDS: CARVEDILOL 25 MG TABLET PO SCH ×2 (09:55→20:34)
[2019-02-25] MEDS: hydrALAZINE 25 MG TABLET PO SCH ×3 (09:55→20:34)
[2019-02-25] MEDS: amLODIPine 10 MG TABLET PO SCH (09:55)
[2019-02-25] MEDS: FAMOTIDINE 20 MG TABLET PO SCH (09:55)
[2019-02-25] MEDS: INSULIN GLARGINE 100 UNIT/ML SUBCUT SCH ×2 (09:55→20:46)
[2019-02-25] MEDS: ACETAMINOPHEN 500 MG TABLET PO PRN ×2 (09:55→20:34)
[2019-02-25] MEDS: MEROPENEM 500 MG in SODIUM CHLORIDE 0.9% 100 ML IV SCH (13:24)
[2019-02-25] MEDS: ENOXAPARIN 30 MG/0.3 ML SYRINGE SUBCUT SCH (15:00)
[2019-02-25] MEDS: ROSUVASTATIN 20 MG TABLET PO SCH (20:34)
[2019-02-26] MEDS: INSULIN REGULAR 100 UNIT/ML SUBCUT SCH ×9 (00:48→22:12)
[2019-02-26] MEDS: ALBUTEROL/IPRATROPIUM 3 ML NEB RESP TX SCH ×5 (02:38→19:06)
[2019-02-26 05:39] LABS: Basophils % 0.1 % (0.0-0.8); Eosinophils % 0.3 % (0.00-10.9); Hematocrit 30.1 VOL% (35.7-47.0); Hemoglobin 9.2 GM/DL (12.0-16.0); Immature Granulocytes % 1.4 %; Immature Granulocytes Absolute 0.16 #; Lymphocytes # 1.8 10*3/uL (1.4-4.0); Lymphocytes % 15.9 % (21.3-54.2); Mean Corpuscular HGB Conc 30.6 GM/DL (32-36); Mean Corpuscular Volume 99.3 FL (87-102); Mean Platelet Volume 12.9 FL (9.6-12.0); Monocytes % 10.1 % (1.7-12.7); Neutrophils % 72.2 % (38.7-73.9); Platelet Count 141 T/CUMM (130-400); Red Blood Count 3.03 MC/CUMM (3.8-5.5); Red Cell Distribution Width 14.6 % (9.3-17.3); White Blood Count 11.5 T/CUMM (4-12)
[2019-02-26 06:10] LABS: Calcium 8.7 MG/DL (8.5-10.1); Osmolality,Calculated 341.3 MOS/KG (273-304)
[2019-02-26] MEDS: amLODIPine 10 MG TABLET PO SCH (08:59)
[2019-02-26] MEDS: hydrALAZINE 25 MG TABLET PO SCH ×3 (08:59→22:14)
[2019-02-26] MEDS: CLOPIDOGREL 75 MG TABLET PO SCH (08:59)
[2019-02-26] MEDS: predniSONE 20 MG TABLET PO SCH (08:59)
[2019-02-26] MEDS: CARVEDILOL 25 MG TABLET PO SCH ×2 (09:00→22:14)
[2019-02-26] MEDS: SERTRALINE 100 MG TABLET PO SCH ×2 (09:00→22:14)
[2019-02-26] MEDS: ACETAMINOPHEN 500 MG TABLET PO PRN ×2 (09:00→15:16)
[2019-02-26] MEDS: FAMOTIDINE 20 MG TABLET PO SCH (09:00)
[2019-02-26] MEDS: OMEGA 3 ACID ETHYL ESTERS 1 GM CAPSULE PO SCH ×2 (09:01→22:13)
[2019-02-26] MEDS: MEROPENEM 500 MG in SODIUM CHLORIDE 0.9% 100 ML IV SCH (09:13)
[2019-02-26] MEDS: INSULIN GLARGINE 100 UNIT/ML SUBCUT SCH ×2 (09:20→22:09)
[2019-02-26] MEDS: ENOXAPARIN 30 MG/0.3 ML SYRINGE SUBCUT SCH (15:27)
[2019-02-26] MEDS: ROSUVASTATIN 20 MG TABLET PO SCH (22:13)
[2019-02-27] MEDS: INSULIN REGULAR 100 UNIT/ML SUBCUT SCH ×6 (00:06→15:46)
[2019-02-27] MEDS: ALBUTEROL/IPRATROPIUM 3 ML NEB RESP TX SCH ×5 (00:44→13:50)
[2019-02-27 05:59] LABS: Osmolality,Calculated 343.3 MOS/KG (273-304)
[2019-02-27] MEDS: MEROPENEM 500 MG in SODIUM CHLORIDE 0.9% 100 ML IV SCH (09:43)
[2019-02-27] MEDS: amLODIPine 10 MG TABLET PO SCH (09:47)
[2019-02-27] MEDS: CLOPIDOGREL 75 MG TABLET PO SCH (09:47)
[2019-02-27] MEDS: SERTRALINE 100 MG TABLET PO SCH (09:47)
[2019-02-27] MEDS: CARVEDILOL 25 MG TABLET PO SCH (09:47)
[2019-02-27] MEDS: predniSONE 20 MG TABLET PO SCH (09:47)
[2019-02-27] MEDS: FAMOTIDINE 20 MG TABLET PO SCH (09:48)
[2019-02-27] MEDS: hydrALAZINE 25 MG TABLET PO SCH (09:50)
[2019-02-27] MEDS ORDERED: hydrALAZINE 25 MG TABLET ONE (09:59)
[2019-02-27] MEDS: INSULIN GLARGINE 100 UNIT/ML SUBCUT SCH (10:01)
[2019-02-27] MEDS: OMEGA 3 ACID ETHYL ESTERS 1 GM CAPSULE PO SCH (10:16)
[2019-02-27] MEDS: ACETAMINOPHEN 500 MG TABLET PO PRN (12:12)
[2019-02-27] MEDS: ENOXAPARIN 30 MG/0.3 ML SYRINGE SUBCUT SCH (15:27)
[2019-02-27 18:05] VITALS: BP 148/55
== END 2019-02-27 16:42 | DRG 492 ==
LOC: EDUNIT# → EDBD → N.ED 23:40 → N.EDINP 02-16 03:02 → SUATTDRO 02-16 03:02 → N.3E 02-16 04:01 → N.ICU 02-17 14:40 → N.3E 02-24 11:10
PROVIDERS: ADMIT Hospitalist; ATTEND Internal Medicine